=== PATIENT | female | born 1970 | race Caucasian/White ===

== ENCOUNTER 2025-03-10 09:14 | Outpatient (CLI) | payer BC | END 2025-03-10 09:15 | disposition home or self-care (01) | LOC: CSHMAMMO 09:14 | PROVIDERS: ATTEND Nurse Practitioner Family | DX: Z13.820 Encounter for screening for osteoporosis (principal); N64.4 Mastodynia; M85.859 Other specified disorders of bone density and structure, unspecified thigh | CPT/HCPCS: 77066; 77080; G0279 ==